=== PATIENT | female | born 1935 | race African-American/Black ===

== ENCOUNTER 2016-10-24 05:59 | Day surgery (SDC) | payer MEDICARE, BC ==
[~2016-10-24] VITALS: Ht 157.5 cm; Wt 60.4 kg
[~2016-10-24 05:59] MED LIST: ASPI-558 PO; CALC-809 PO; CYAN50LO PO; HYDR12.530 PO; MULT-399 PO; OMEG300C PO
--- OUTSIDE RECORDS SUMMARY | 2016-10-24 06:03 | XMS REPORT | Continuity of Care Document ---
Author Author [facility] Organization [facility] Address Unknown Phone Unavailable Support Name Relationship Address Phone JAXSON MONTILLA MD Caregiver [facility] [address] , [address] [place], [place] [id number] LOS GERARD MD Caregiver [address] [place] [address] DR[address] [place], [place] [phone] DANE DELCID Next Of Kin [address] [place] [id number] Insurance Providers Payer Name Policy Number Subscriber Name Relationship Medicare [id number] Cindy Brown 18 Self Blue Cross Select Plan 65 [id number] Cindy Brown 18 Self Advance Directives Directive Response Recorded Date/Time Ordered Resuscitation Status Full Code, unverified 10/18/14 11:08am Resuscitation Documents on File No 10/18/14 8:46am Problems No known problems or medical conditions. Medications Medication Dose Route Sig Days/Qty Instructions Order Date Discontinued Date Status Aspirin 81 Mg PO BEDTIME 02/05/11 Active Calcium Carbonate 500 Mg PO DAILY 06/29/14 Active [place]-3 Fatty Acids 300 Mg PO DAILY 06/29/14 Active Hydrochlorothiazide 12.5 Mg PO DAILY 06/29/14 Active Multivitamin 1 Tab PO DAILY 06/29/14 Active Cyanocobalamin (Vitamin B-12) 50 Mcg PO DAILY 06/29/14 Active Social History Social History Problem Response Recorded Date/Time Chewing Tobacco Status No 10/20/2014 10:33am Hx Substance Use No 10/20/2014 10:33am Hx Alcohol Use No 10/20/2014 10:33am Has the pt used tobacco in the last 12 months No 10/20/2014 10:33am Query Response Start Date Stop Date Smoking Status Former smoker Hospital Discharge Instructions No hospital discharge instructions. Plan of Care No plan of care. Functional Status No functional status results. Allergies, Adverse Reactions, Alerts Allergen Type Severity Reaction Status Last Updated Iodinated Contrast Media - IV Dye Allergy Intermediate RASH, HIVES Active 02/05/11 Penicillin Allergy Intermediate SWELL, RED BUMPS Active 02/05/11 Adhesive Adverse Reaction Severe TEARS OFF SKIN Active 10/20/14 Immunizations Name Given Type Hx Influenza Vaccination No Historical Hx Pneumococcal Vaccination No Historical Hx Influenza Vaccination No Historical Vital Signs Acute Vital Signs Vital Response Date/Time Temperature (Fahrenheit) 98.0 deg F (96.8 - 99.1) Temperature (Calculated Celsius) 36.96286 degrees C (36.0 - 37.3) Temperature Source Temporal Pulse Rate (adult) 70 bpm (60 - 100) Respiratory Rate 16 breaths/min (10 - 20) O2 Sat by Pulse Oximetry 94 % (90 - 100) Oxygen Delivery Method Room Air Blood Pressure 146/78 mm Hg Blood Pressure Source Automatic Cuff Height 5 ft 2 in Weight 138 lb Body Mass Index 25.0 kg/m^2 Results Test Source Date Result Interp. Ref. Range Comments Activated Partial Thromboplast Time February 05, 2011 7:20pm 29.4 SEC N 24- 36 Alanine Aminotransferase (ALT/SGPT) February 05, 2011 7:20pm 29 U/L N 9-52 Albumin February 05, 2011 7:20pm 4.5 G/DL N 3.5-5.0 Albumin/Globulin Ratio February 05, 2011 7:20pm 1.2 RATIO N 1.1-2.2 Alkaline Phosphatase February 05, 2011 7:20pm 80 U/L N 38-126 Anion Gap February 05, 2011 7:20pm 10.8 MEQ/L N 5-15 Aspartate Amino Transf (AST/SGOT) February 05, 2011 7:20pm 36 U/L N 14-36 B-Type Natriuretic Peptide February 05, 2011 7:20pm 29 PG/ML N 15-100 BUN/Creatinine Ratio February 05, 2011 7:20pm 22 RATIO N 6-26 Basophils # (Auto) February 05, 2011 7:20pm 0.0 T/MM3 N 0-0.2 Basophils (%) (Auto) February 05, 2011 7:20pm 0.2 % N 0-2 Blood Urea Nitrogen February 05, 2011 7:20pm 24.0 MG/DL H 7-17 Calcium Level February 05, 2011 7:20pm 9.7 MG/DL N 8.4-10.2 Calculated Osmolality February 05, 2011 7:20pm 282 MOSM/KG H 261-280 Carbon Dioxide Level February 05, 2011 7:20pm 30 MEQ/L N 22-30 Chloride Level February 05, 2011 7:20pm 103 MEQ/L N 98-107 Creatinine February 05, 2011 7:20pm 1.1 MG/DL N 0.7-1.2 D-Dimer February 05, 2011 7:20pm 155 NG/ML N 0-230 <224 NG/ML=PRESUMPTIVE NEGATIVE FOR PE OR DVT>224 NG/ML=ADDITIONAL EVALUATION FOR PE OR DVT RECOMMENDED Eosinophils # (Auto) February 05, 2011 7:20pm 0.1 T/MM3 N 0-0.5 Eosinophils (%) (Auto) February 05, 2011 7:20pm 1.2 % N 0-4 Globulin February 05, 2011 7:20pm 3.7 G/DL H 2.4-3.6 Glucose Level February 05, 2011 7:20pm 119 MG/DL H 65-110 Hematocrit February 05, 2011 7:20pm 42.9 % N 36-46 Hemoglobin February 05, 2011 7:20pm 14.1 GM/DL N 12-16 Lymphocytes # (Auto) February 05, 2011 7:20pm 2.4 T/MM3 N 1-4.8 Lymphocytes (%) (Auto) February 05, 2011 7:20pm 42.3 % N 23-45 Mean Corpuscular Hemoglobin February 05, 2011 7:20pm 29.4 UUG N 26-34 Mean Corpuscular Hemoglobin Concent February 05, 2011 7:20pm 32.9 GM/DL N 31- 37 Mean Corpuscular Volume February 05, 2011 7:20pm 89.4 UM3 N 80-100 Mean Platelet Volume February 05, 2011 7:20pm 10.4 UM3 N 9.4-12.4 Monocytes # (Auto) February 05, 2011 7:20pm 0.5 T/MM3 N 0-0.8 Monocytes (%) (Auto) February 05, 2011 7:20pm 8.6 % N 0-9.0 Neutrophils # (Auto) February 05, 2011 7:20pm 2.7 T/MM3 N 1.8-7.7 Neutrophils (%) (Auto) February 05, 2011 7:20pm 47.5 % N 33-66 Platelet Count February 05, 2011 7:20pm 157 T/MM3 N 130-400 Potassium Level February 05, 2011 7:20pm 3.6 MEQ/L N 3.6-5 Prothromb Time International Ratio February 05, 2011 7:20pm 0.99 N 0.86-1.10 THERAPUTIC RANGE=2.00-3.00 FOR ANTI-THROMBOSIS THERAPUTIC RANGE=2.50-3.50 FOR IMPLANTED VALVE RDW Standard Deviation February 05, 2011 7:20pm 42.2 FL N 36.9-50.2 Red Blood Count February 05, 2011 7:20pm 4.80 M/MM3 N 4.00-5.20 Sodium Level February 05, 2011 7:20pm 144 MEQ/L N 134-144 Total Bilirubin February 05, 2011 7:20pm 0.30 MG/DL N 0.20-1.30 Total Protein February 05, 2011 7:20pm 8.2 G/DL N 6.3-8.2 Troponin I February 06, 2011 1:45pm < 0.012 ng/ml 0-0.12 COMMENT CALL IF ELEVATED White Blood Count February 05, 2011 7:20pm 5.7 T/MM3 N 4.5-11.0 Glomerular Filtration Rate Calc February 05, 2011 7:20pm 48 - Immature Granulocyte # (Auto) February 05, 2011 7:20pm 0.01 T/MM3 N 0.00- 0.03 Immature Granulocyte % (Auto) February 05, 2011 7:20pm 0.2 % N 0.0-0.5 Procedures Procedure Status Date Provider(s) Cataract surgery completed 10/20/14 JAXSON MONTILLA MD
--- OUTSIDE RECORDS SUMMARY | 2016-10-24 06:03 | XMS REPORT | Referral Summary ---
Author Author [facility] Organization [facility] Address Unknown Phone Unavailable Care Team Providers Care Sea Captain Name Role Phone Juan Buckley Primary Care Physician [phone] Encounter VC Date(s): 04/17/16 - 04/17/16 [facility] Family [address] [place] [address] Discharge Disposition: 01-Home or Self Care Attending Physician: Demetrio Kurtz APRN Admitting Physician: Demetrio Kurtz APRN Vital Signs Most recent to 1 oldest [Reference Range]: Peripheral Pulse 73 bpm Rate [60-100 bpm] (04/17/16 9:18 AM) Respiratory Rate 18 br/min [14-20 br/min] (04/17/16 9:18 AM) Blood Pressure 112/70 mmHg [90-140/60-90 mmHg] (04/17/16 9:18 AM) SpO2 96 % (04/17/16 9:18 AM) Problem List Condition Effective Dates Status Health Status Informant Colon Resolved cancer(Confirmed) gall Resolved bladder(Confirmed) Hyperlipidemia(Confi Active rmed) Hypertension(Confirm Active ed) Allergies, Adverse Reactions, Alerts Substance Reaction Severity Status iodine1 Active Latex2 Active penicillin Unknown Active 1See Conversion Document 2See Conversion Document Medications aspirin 0 Refill(s) Start Date: 03/22/14 Status: Ordered Calcium 600+D tabs, Oral, TID, 0 Refill(s) Start Date: 03/22/14 Status: Ordered Fish Oil 500 mg oral capsule caps, Oral, Daily, 0 Refill(s) Start Date: 03/22/14 Status: Ordered hydrochlorothiazide 25 mg oral tablet 25 mg 1 tabs, Oral, Daily, # 90 tabs, 3 Refill(s), Pharmacy: [facility] # [id number], 1 tabs Oral Daily Start Date: 08/22/15 Status: Ordered multivitamin Daily, 0 Refill(s) Start Date: 03/22/14 Status: Ordered nitroglycerin 0.4 mg sublingual tablet 1 tabs, SubLingual, q5min, as needed for chest pain, # 100 tabs, 0 Refill(s) Start Date: 03/22/14 Status: Ordered Vitamin B-12 0 Refill(s) Start Date: 03/22/14 Status: Ordered Results No data available for this section Immunizations Vaccine Date Refusal Reason tetanus-diphth toxoids (Td) adult/adol 01/10/09 Procedures Procedure Date Related Diagnosis Body Site Colonoscopy and biopsy of colon1 07/19/14 History of colon resection 1983 Hysterectomy2 1971 gall bladder 1No atypia on biopsy. Personal history colon cancer. Return to clinic in 5 years to discuss repeat colonoscopy. 2ovary sparing KALE Social History Social History Type Response Smoking Status Former smoker; Stopped at age: 43 Assessment and Plan No data available for this section
--- OUTSIDE RECORDS SUMMARY | 2016-10-24 06:03 | XMS REPORT | Continuity of Care Document ---
Author Author [facility] Organization [facility] Address Unknown Phone Unavailable Support Name Relationship Address Phone LOS GERARD MD Caregiver [address] [place] [address] [place] [phone] WESLEY DE LA PAZ FACS, MD Caregiver [address] [place] [address] [place] [phone] DANE DELCID Next Of Kin [address] [place] [address] Insurance Providers Payer Name Policy Number Subscriber Name Relationship Medicare [id number] Cindy Brown 18 Self Blue Cross Select Plan 65 [id number] Cindy Brown 18 Self Advance Directives Directive Response Recorded Date/Time Ordered Resuscitation Status Full Code 07/16/14 11:33am Resuscitation Documents on File No 07/16/14 11:27am Problems No known problems or medical conditions. Medications Medication Dose Route Sig Days/Qty Instructions Order Date Discontinued Date Status Aspirin 81 Mg PO BEDTIME 02/05/11 Active Calcium Carbonate 500 Mg PO DAILY 06/29/14 Active [place]-3 Fatty Acids 300 Mg PO DAILY 06/29/14 Active Hydrochlorothiazide 12.5 Mg PO DAILY 06/29/14 Active Multivitamin 1 Tab PO DAILY 06/29/14 Active Cyanocobalamin (Vitamin B-12) 50 Mcg PO DAILY 06/29/14 Active Social History Social History Problem Response Recorded Date/Time Smoking Status Former smoker 07/16/2014 11:27am Chewing Tobacco Status No 07/16/2014 11:27am Hx Substance Use No 07/13/2014 12:57pm Hx Alcohol Use No 07/13/2014 12:57pm Has the pt used tobacco in the last 12 months No 07/13/2014 12:57pm Hospital Discharge Instructions No hospital discharge instructions. Plan of Care No plan of care. Functional Status No functional status results. Allergies, Adverse Reactions, Alerts Allergen Type Severity Reaction Status Last Updated Iodinated Contrast Media - IV Dye Allergy Intermediate RASH, HIVES Active 02/05/11 Penicillin Allergy Intermediate SWELL, RED BUMPS Active 02/05/11 Latex Allergy Unknown Active 07/16/14 Immunizations Name Given Type Hx Influenza Vaccination No Historical Hx Pneumococcal Vaccination No Historical Hx Influenza Vaccination No Historical Vital Signs Acute Vital Signs Vital Response Date/Time Temperature (Fahrenheit) 97.3 deg F (96.8 - 99.1) Temperature (Calculated Celsius) 36.51802 degrees C (36.0 - 37.3) Temperature Source Temporal Pulse Rate (adult) 74 bpm (60 - 100) Respiratory Rate 16 breaths/min (10 - 20) O2 Sat by Pulse Oximetry 98 % (90 - 100) Oxygen Delivery Method Room Air Blood Pressure 138/75 mm Hg Blood Pressure Source Automatic Cuff Height 5 ft 2 in Weight 137 lb Body Mass Index 25.0 kg/m^2 Results [...] N 0.0-0.5 Procedures Procedure Status Date Provider(s) CATARACT SURG W/IOL 1 STAGE completed 07/14/14 JAXSON MONTILLA MD Colonoscopy with polypectomy and biopsy completed 07/19/14 WESLEY DE LA PAZ MD, FACS, CWS
--- OUTSIDE RECORDS SUMMARY | 2016-10-24 06:03 | XMS REPORT | Continuity of Care Document ---
Author Author [facility] Organization [facility] Address Unknown Phone Unavailable Support Name Relationship Address Phone JAXSON MONTILLA MD Caregiver [facility] [address] , [address] [place] [address] LOS GERARD MD Caregiver [address] [place] [address] [address] [place], [place] [phone] DANE DELCID Next Of Kin [address] [place] [id number] Insurance Providers Payer Name Policy Number Subscriber Name Relationship Medicare [id number] Cindy Brown 18 Self Blue Cross Select Plan 65 [id number] Cindy Brown 18 Self Advance Directives Directive Response Recorded Date/Time Ordered Resuscitation Status Full Code, unverified 07/13/14 1:10pm Resuscitation Documents on File No 07/13/14 1:02pm Problems No known problems or medical conditions. Medications Medication Dose Route Sig Days/Qty Instructions Order Date Discontinued Date Status Aspirin 81 Mg PO BEDTIME 02/05/11 Active Calcium Carbonate 500 Mg PO DAILY 06/29/14 Active [place]-3 Fatty Acids 300 Mg PO DAILY 06/29/14 Active Hydrochlorothiazide 12.5 Mg PO DAILY 06/29/14 Active Multivitamin 1 Tab PO DAILY 06/29/14 Active Cyanocobalamin (Vitamin B-12) 50 Mcg PO DAILY 06/29/14 Active Social History Social History Problem Response Recorded Date/Time Smoking Status Former smoker 07/13/2014 12:57pm When did patient STOP smoking? AGE 40 07/13/2014 12:57pm Chewing Tobacco Status No 07/13/2014 12:57pm Hx Substance Use No 07/13/2014 12:57pm Hx Alcohol Use No 07/13/2014 12:57pm Has the pt used tobacco in the last 12 months No 07/13/2014 12:57pm Hospital Discharge Instructions No hospital discharge instructions. Plan of Care No plan of care. Functional Status No functional status results. Allergies, Adverse Reactions, Alerts Allergen Type Severity Reaction Status Last Updated IV Dye, Iodine Containing Contrast Allergy Intermediate RASH, HIVES Active 02/05/11 Penicillin Allergy Intermediate SWELL, RED BUMPS Active 02/05/11 Immunizations Name Given Type Hx Influenza Vaccination No Historical Hx Pneumococcal Vaccination No Historical Hx Influenza Vaccination No Historical Vital Signs Acute Vital Signs Vital Response Date/Time Temperature (Fahrenheit) 98.3 deg F (96.8 - 99.1) Temperature (Calculated Celsius) 36.28048 degrees C (36.0 - 37.3) Temperature Source Temporal Pulse Rate (adult) 73 bpm (60 - 100) Respiratory Rate 18 breaths/min (10 - 20) O2 Sat by Pulse Oximetry 96 % (90 - 100) Oxygen Delivery Method Room Air Blood Pressure 131/60 mm Hg Blood Pressure Source Automatic Cuff Height 5 ft 2 in Weight 135 lb Body Mass Index 24.0 kg/m^2 Results Test Source Date Result Interp. [...] Procedure Status Date Provider(s) Cataract surgery completed 07/14/14 JAXSON MONTILLA MD
--- OUTSIDE RECORDS SUMMARY | 2016-10-24 06:03 | XMS REPORT | Continuity of Care Document ---
Author Author [facility] Address [address] [address] Phone Care Team Providers Care Clinical Informatics Manager Name Role Phone María Chowdary SHAYLEE Unavailable Payers Payer name Insurance type Covered democrat ID Authorization(s) Unknown Problems Condition Effective Dates (start - stop) Clinical Status Hypertension, Unspecified - *Chronic Other and unspecified hyperlipidemia - *Chronic Needle phobia - *Chronic Musculoskeletal pain - *Acute Medicare annual wellness visit, initial - *Resolved Postmenopausal - Asymptomatic HYPERTENSION NOS - Hypertension, Unspecified - *Chronic Hyperlipidemia - *Chronic Urticaria - Improved Family History Family Member Diagnosis Age At Onset Status Unknown Social History Social History Element Description Quantity Unknown Allergies, Adverse Reactions, Alerts Substance Reaction Severity Status PENICILLINS Unknown Unknown Medications Medication Instructions Dosage Effective Dates (start - stop) Status Xanax 0.25 mg tablet take 1 tablet (0.25MG) by oral route before lab draw. - Active aspirin 81 mg chewable tablet chew 1 tablet (81MG) by oral route every day 81 MG - Active calcium 500 mg tablet take 1 Tablet by Oral route every day 0 - Active multivitamin tablet take 1 Tablet by Oral route every day 0 - Active Fish Oil 500 mg capsule take 1 Capsule by Oral route every day 0 2005 - Active VITAMIN B-12 (unknown strength) daily - Active nitroglycerin 0.[address] 1 tablet (0.4MG) by sublingual route at the 1st sign of attack; may repeat every 5 min until relief; if pain persists after 3 tablets in 15 min, prompt medical attention is recommended 0.4 MG May-02-2013 - Active hydrochlorothiazide 25 mg tablet Take 1 tablet by mouth every day. 2012 - Active Immunizations Vaccine Date Status Comments Unknown Results Test Name Date and Time Measure Units Reference Range Abnormal Flag Comments Unknown Vital Signs Date / Time: Height Weight Pulse Rate Blood Pressure Temperature /14:49:00 63.50 in 137.60 lbs 92 /min 128/78 mm[Hg] 97.8 F Procedures Procedure Date Unknown Encounters Encounter Location Date Patient Visit [facility] Patient Visit [facility] Patient Visit [facility] Patient Visit [facility] Patient Visit Con[facility] Patient Visit [facility] Advance Directives Directive Effective Date Unknown
--- OUTSIDE RECORDS SUMMARY | 2016-10-24 06:03 | XMS REPORT | Referral Summary ---
Author Author [facility] Organization [facility], [facility] Address Unknown Phone Unavailable Care Team Providers Care Arboriculturist Name Role Phone Juan Buckley Primary Care Physician [phone] Encounter VC Date(s): 04/20/16 - 04/20/16 [facility], Family [address] [place] [address] Discharge Disposition: 01-Home or Self Care Attending Physician: Demetrio Kurtz APRN Admitting Physician: Demetrio Kurtz APRN Vital Signs Most recent to 1 oldest [Reference Range]: Temperature Tympanic 36.9 degC [36.6-38.1 degC] (04/20/16 10:43 AM) Peripheral Pulse 80 bpm Rate [60-100 bpm] (04/20/16 10:43 AM) Blood Pressure 140/84 mmHg [90-140/60-90 mmHg] (04/20/16 10:43 AM) Problem List Condition Effective Dates Status [...] Daily, # 90 tabs, 3 Refill(s), Pharmacy: [facility] # [id number], 1 tabs Oral Daily Start Date: 11/16/15 Status: Ordered multivitamin Daily, 0 Refill(s) Start [...]
--- OUTSIDE RECORDS SUMMARY | 2016-10-24 06:03 | XMS REPORT | Referral Summary ---
Author Author [facility] Organization [facility] Family [facility] Address Unknown Phone Unavailable Care Team Providers Care Marine Operations Coordinator Name Role Phone Juan Buckley Primary Care Physician [phone] Encounter VC Date(s): 04/25/16 - 04/25/16 [facility], Family [address] [place] [address] Discharge Disposition: 01-Home or Self Care Attending Physician: Demetrio Kurtz APRN Admitting Physician: Demetrio Kurtz APRN Vital Signs Most recent to 1 oldest [Reference Range]: Peripheral Pulse 88 bpm Rate [60-100 bpm] (04/25/16 10:18 AM) Respiratory Rate 18 br/min [14-20 br/min] (04/25/16 10:18 AM) Blood Pressure 120/72 mmHg [90-140/60-90 mmHg] (04/25/16 10:18 AM) SpO2 96 % (04/25/16 10:18 AM) Problem List Condition Effective Dates Status [...] Daily, # 90 tabs, 3 Refill(s), Pharmacy: [facility] # [id number], 1 tabs Oral Daily Start Date: 08/22/15 [...] years to discuss repeat colonoscopy. 2ovary sparing [facility] Social History Social History Type Response Smoking Status Former smoker; Stopped at age: 43 Assessment and Plan No data available for this section
--- OUTSIDE RECORDS SUMMARY | 2016-10-24 06:03 | XMS REPORT | Referral Summary ---
Author Author [facility] Organization [facility], [facility] Address Unknown Phone Unavailable Care Team Providers Care Quilt Sewer Name Role Phone Juan Buckley Primary Care Physician [phone] Encounter VC Date(s): 05/23/16 - 05/23/16 [facility], Family [address] [place] [address]- Discharge Disposition: 01-Home or Self Care Attending Physician: Clara Buckley DO Admitting Physician: Clara Buckley DO Vital Signs Most recent to 1 oldest [Reference Range]: Peripheral Pulse 88 bpm Rate [60-100 bpm] (05/23/16 10:27 AM) Respiratory Rate 18 br/min [14-20 br/min] (05/23/16 10:27 AM) Blood Pressure 140/82 mmHg [90-140/60-90 mmHg] (05/23/16 10:27 AM) SpO2 94 % (05/23/16 10:27 AM) Problem List Condition Effective Dates Status [...] Daily, # 90 tabs, 3 Refill(s), Pharmacy: [facility] # [id number], 1 tabs Oral Daily Start Date: 08/22/15 Status: Ordered multivitamin Daily, 0 Refill(s) Start Date: 03/22/14 Status: Ordered nitroglycerin 0.4 mg sublingual tablet 1 tabs, SubLingual, q5min, as needed for chest pain, # 100 tabs, 0 Refill(s) Start Date: 03/22/14 Status: Ordered Vitamin B-12 0 Refill(s) Start Date: 03/22/14 Status: Ordered Results Chemistry Most recent to 1 oldest [Reference Range]: Sodium Lvl [135-144 144 mEq/L mEq/L] (05/23/16 11:03 AM) Potassium Lvl 4.4 mEq/L [3.5-5.2 mEq/L] (05/23/16 11:03 AM) Chloride [99-111 108 mEq/L mEq/L] (05/23/16 11:03 AM) CO2 [22-31 mEq/L] 28 mEq/L (05/23/16 11:03 AM) AGAP [3-20] 8 (05/23/16 11:03 AM) BUN [10-20 mg/dL] 15 mg/dL (05/23/16 11:03 AM) Glucose Lvl [70-99 104 mg/dL mg/dL] *HI* (05/23/16 11:03 AM) Creatinine Lvl 1.15 mg/dL [0.57-1.11 mg/dL] *HI* (05/23/16 11:03 AM) eGFR [>60 mL/min] 45 mL/min 1 *ABN* (05/23/16 11:03 AM) Calcium Lvl 9.8 mg/dL [8.9-10.5 mg/dL] (05/23/16 11:03 AM) 1Result Comment: Multiply eGFR results by 1.21 for race. Immunizations Vaccine Date Refusal Reason tetanus-diphth toxoids [...] Stopped at age: 43 Assessment and Plan Extracted from: Title: Office Visit Note Author: Clara Buckley DO Date: 05/23/16 Assessment/Plan HTN (hypertension) BMP today. Due to patient's blood pressure being so stable and only on one medication she is going to return to clinic in 1 year or sooner with problems. Ordered: Basic Metabolic Panel Office Visit Level 3 Est [id number]
--- OUTSIDE RECORDS SUMMARY | 2016-10-24 06:03 | XMS REPORT | Referral Summary ---
Author Author [facility], Family Medicine Organization [facility], Family [facility] Address Unknown Phone Unavailable Care Team Providers Care Venereal Disease Control Head Name Role Phone Juan Buckley Primary Care Physician [phone] Encounter VC Date(s): 11/21/15 - 11/21/15 [facility], Family [address] [place] [address]- Discharge Disposition: 01-Home or Self Care Attending Physician: Malu Coles APRN Admitting Physician: Malu Coles APRN Vital Signs Most recent to 1 oldest [Reference Range]: Temperature Tympanic 37 degC [36.6-38.1 degC] (11/21/15 1:44 PM) Peripheral Pulse 88 bpm Rate [60-100 bpm] (11/21/15 1:44 PM) Blood Pressure 130/76 mmHg [90-140/60-90 mmHg] (11/21/15 1:44 PM) SpO2 90 % (11/21/15 1:44 PM) Problem List Condition Effective Dates Status Health [...] Refill(s), Pharmacy: [facility] # [id number], 1 tabs Oral Daily Start Date: 08/22/15 Status: Ordered multivitamin Daily, 0 Refill(s) Start Date: 03/22/14 Status: Ordered nitroglycerin 0.4 mg sublingual tablet 1 tabs, SubLingual, q5min, as needed for chest pain, # 100 tabs, 0 Refill(s) Start Date: 03/22/14 Status: Ordered Promethazine VC with Codeine oral syrup 5 mL, Oral, q6hr, as needed for cough, # 120 mL, 0 Refill(s) Start Date: 11/21/15 Status: Ordered Vitamin B-12 0 Refill(s) Start Date: 03/22/14 Status: Ordered Zithromax Z-Vern 250 mg oral tablet 1 packets, Oral, Daily, as directed on package labeling, X 5 days, # 6 tabs, 0 Refill(s), Pharmacy: [facility] #[id number], 1 packets Oral Daily,x5 days, Instr:as directed on package labeling Start Date: 11/21/15 Stop Date: 11/26/15 Status: Ordered Results No data available for this section Immunizations Vaccine Date Refusal Reason tetanus-diphth toxoids (Td) adult/adol 01/10/09 Procedures Procedure Date Related Diagnosis Body Site Colonoscopy and biopsy of colon1 07/19/14 History of colon resection 1983 Hysterectomy1971 gall bladder 1No atypia on biopsy. Personal history colon cancer. Return to clinic in 5 years to discuss repeat colonoscopy. 2ovary sparing KALE Social History Social History Type Response Smoking Status Former smoker; Stopped at age: 43 Assessment and Plan No data available for this section
--- OUTSIDE RECORDS SUMMARY | 2016-10-24 06:03 | XMS REPORT | Referral Summary ---
Author Author [facility], Family Medicine Organization [facility] Family [facility] Address Unknown Phone Unavailable Care Team Providers Care Biomedical Equipment Specialist Name Role Phone Juan Buckley Primary Care Physician [phone] Encounter VC Date(s): 08/22/15 - 08/22/15 [facility], Family [address] [place] [id number] Discharge Diagnosis: Hypertension Discharge Diagnosis: Muscle cramps Discharge Disposition: 01-Home or Self Care Attending Physician: Clara Buckley DO Admitting Physician: Clara Buckley DO Vital Signs Most recent to 1 oldest [Reference Range]: Temperature Tympanic 36.9 degC [36.6-38.1 degC] (08/22/15 9:32 AM) Peripheral Pulse 86 bpm Rate [60-100 bpm] (08/22/15 9:32 AM) Respiratory Rate 17 br/min [14-20 br/min] (08/22/15 9:32 AM) Blood Pressure 130/68 mmHg [90-140/60-90 mmHg] (08/22/15 9:32 AM) SpO2 96 % (08/22/15 9:32 AM) Problem List Condition Effective Dates Status [...] Daily, # 90 tabs, 3 Refill(s), [facility] # [id number], 1 tabs Oral Daily Start Date: 08/22/15 [...] Visit Note Author: Clara Buckley DO Date: 08/22/15 Assessment/Plan Hypertension We'll continue hydrochlorothiazide. Patient declines lab. Ordered: Office Visit Level 4 Est 23621 Muscle cramps Advised patient that as she is taking hydrochlorothiazide and hasn't had lab in a long period of time that she should do this. Advised patient that I was concerned with her muscle cramps that she may have an electrolyte abnormality. I advised the patient that a left lid abnormalities can lead to confusion, seizure, arrhythmias. Patient declined lab at this time. Ordered: Office Visit Level 4 Est 21840 Orders: hydrochlorothiazide, 25 mg 1 tabs, Oral, Daily, # 90 tabs, 3 Refill(s) , [facility] #[id number], 1 tabs Oral Daily
--- OUTSIDE RECORDS SUMMARY | 2016-10-24 06:03 | XMS REPORT | Referral Summary ---
Author Author [facility], Family Medicine Organization [facility], Family [facility] Address Unknown Phone Unavailable Care Team Providers Care Sorority Mother Name Role Phone Juan Buckley Primary Care Physician [phone] Encounter Date(s): 05/28/16 - 05/28/16 [facility], [address] [place] [address]- Discharge Disposition: 01-Home or Self Care Attending Physician: Clara Buckley DO Admitting Physician: Clara Buckley DO Vital Signs Most recent to 1 oldest [Reference Range]: Peripheral Pulse 70 bpm Rate [60-100 bpm] (05/28/16 10:30 AM) Blood Pressure 138/74 mmHg [90-140/60-90 mmHg] (05/28/16 10:30 AM) Problem List Condition Effective Dates Status [...] Daily, # 90 tabs, 3 Refill(s), Pharmacy: [facility] # [id number], 1 tabs Oral Daily Start Date: 08/22/15 Status: Ordered multivitamin Daily, 0 Refill(s) Start Date: 03/22/14 Status: Ordered nitroglycerin 0.4 mg sublingual tablet 0.4 mg 1 tabs, SubLingual, q5min, as needed for chest pain, # 50 tabs, 0 Refill( s), Pharmacy: [facility] #[id number], CALL PT AT [phone] WHEN SCRIPT IS READY FOR PICKUP, 1 tabs SubLingual q5min,PRN:as needed for chest pain Start Date: 05/28/16 Status: Ordered Vitamin B-12 0 Refill(s) Start [...] 43 Assessment and Plan Extracted from: Title: Ambulatory Patient Education Author: Alex Mcguire RN Date: 05/28/16 Geriatrics Fall Prevention and Home Safety Falls cause injuries and can affect all age groups. It is possible to use preventive measures to significantly decrease the likelihood of falls. There are many simple measures that can make your home safer and prevent falls. OUTDOORS Repair cracks and edges of walkways and driveways. Remove high doorway thresholds. Trim shrubbery on the main path into your home. Have good outside lighting. Clear walkways of tools, rocks, debris, and clutter. Check that handrails are not broken and are securely fastened. Both sides of steps should have handrails. Have leaves, snow, and ice cleared regularly. Use sand or salt on walkways during winter months. In the garage, clean up grease or oil spills. BATHROOM Install night lights. Install grab bars by the toilet and in the tub and shower. Use non-skid mats or decals in the tub or shower. Place a plastic non-slip stool in the shower to sit on, if needed. Keep floors dry and clean up all water on the floor immediately. Remove soap buildup in the tub or shower on a regular basis. Secure bath mats with non-slip, double-sided rug tape. Remove throw rugs and tripping hazards from the floors. BEDROOMS Install night lights. Make sure a bedside light is easy to reach. Do not use oversized bedding. Keep a telephone by your bedside. Have a firm chair with side arms to use for getting dressed. Remove throw rugs and tripping hazards from the floor. KITCHEN Keep handles on pots and pans turned toward the center of the stove. Use back burners when possible. Clean up spills quickly and allow time for drying. Avoid walking on wet floors. Avoid hot utensils and knives. Position shelves so they are not too high or low. Place commonly used objects within easy reach. If necessary, use a sturdy step stool with a grab bar when reaching. Keep electrical cables out of the way. Do not use floor sudanese or wax that makes floors slippery. If you must use wax, use non-skid floor wax. Remove throw rugs and tripping hazards from the floor. STAIRWAYS Never leave objects on stairs. Place handrails on both sides of stairways and use them. Fix any loose handrails. Make sure handrails on both sides of the stairways are as long as the stairs. Check carpeting to make sure it is firmly attached along stairs. Make repairs to worn or loose carpet promptly. Avoid placing throw rugs at the top or bottom of stairways, or properly secure the rug with carpet tape to prevent slippage. Get rid of throw rugs, if possible. Have an electrician's assistant put in a light switch at the top and bottom of the stairs. OTHER FALL PREVENTION TIPS Wear low-heel or rubber-soled shoes that are supportive and fit well. Wear closed-toe shoes. When using a stepladder, make sure it is fully opened and both spreaders are firmly locked. Do not climb a closed stepladder. Add color or contrast paint or tape to grab bars and handrails in your home. Place contrasting color strips on first and last steps. Learn and use mobility aids as needed. Turn on lights to avoid dark areas. Immediately replace light bulbs that burn out. Get light switches that glow. Arrange furniture to create clear pathways. Keep furniture in the same place. Firmly attach carpet with non-skid or double-sided tape. Eliminate uneven floor surfaces. Select a carpet pattern that does not visually hide the edge of steps. Be aware of all pets. OTHER HOME SAFETY TIPS Set the water temperature for 120F (48.8C). Keep emergency numbers on or near the telephone. Keep smoke detectors on every level of the home and near sleeping areas. This information is not intended to replace advice given to you by your health care provider. Make sure you discuss any questions you have with your health care provider. Document Released: 09/13/2003 Document Revised: 10/14/2015 Document Reviewed: Exit[employer] Patient Information 2016 [facility], [facility]. No follow up information was provided.
[2016-10-24 06:36] VITALS: BP 179/81; TEMP 98.2
[2016-10-24 06:38] VITALS: Ht 157.5 cm; Wt 60.4 kg
[2016-10-24] MEDS: TETRACAINE 0.5% EYE DROPS 4ml BOTTLE RIGHT EYE PRN ×3 (07:27→08:52)
[2016-10-24 08:29] VITALS: BP 158/76; PULSE 78; RESP 16; O2SAT 96
[2016-10-24 08:31] VITALS: TEMP 98.3
--- NOTE | 2016-10-24 08:55 | NUR ---
NOTIFICATION DR MONTILLA NOTIFIED AT THIS TIME FOR POST PROCEDURE INTRAOCCULAR PRESSURE OF 27. HE VERBALIZED TO RN TO HAVE PT STAY HERE AND HOLD DISMISSAL UNTIL HE COMES TO SEE PT.
--- NOTE | 2016-10-24 09:35 | NUR ---
DR MONTILLA HERE TO SEE PT POST PROCEDURE. PT TO BE DISMISSED HOME.
[2016-10-24] MEDS ORDERED: PHENYLEPHRINE 2.5% RIGHT EYE PRN (17:00)
[2016-10-24] MEDS ORDERED: TROPICAMIDE 1% EYE DROPS 3ml RIGHT EYE PRN (17:00)
[2016-10-24] MEDS ORDERED: BRIMONIDINE 0.2% EYE DROPS 5ml RIGHT EYE ONE (18:00)
[2016-10-24] MEDS ORDERED: PrednisoLONE 1% EYE DROPS 5ml RIGHT EYE ONE (18:00)
--- NOTE | 2016-12-26 10:36 | OPNOTEF ---
DATE OF PROCEDURE 10/24/2016 PREOPERATIVE DIAGNOSIS Visually significant opacified posterior capsule, right eye, after having had cataract surgery previously. POSTOPERATIVE DIAGNOSIS Visually significant opacified posterior capsule, right eye, after having had cataract surgery previously. PROCEDURE YAG capsulotomy for a visually significant opacified posterior capsule, right eye. SURGEON Dr. Ibrahima Jones DESCRIPTION OF PROCEDURE The patient was given dilating drops, 2.5% phenylephrine, 1% tropicamide and topical tetracaine anesthetic for her right eye. When it was noted that the eye was numb, she was positioned at the laser. A laser lens was placed over her eye. The laser was focused and the YAG laser delivered enough energy in order to open a space or a hole in the posterior capsule. It was noted that this was done in a 360-degree fashion and the capsule was open which would eliminate the obscurity that was blocking her vision. The Yag lens was removed. Her eye was rinsed and a drop of brimonidine was placed into her eye. Approximately a half hour later her pressure was 27 in that eye which was mildly elevated but not significantly. The procedure was completed without complication and the patient left the room in good condition. ABDIEL
== END 2016-10-24 10:05 | disposition home or self-care (01) ==
LOC: NSC 05:59
PROVIDERS: ATTEND Ophthalmology
DX: H26.491 Other secondary cataract, right eye (principal)